=== PATIENT | male | born 1935 | race Caucasian/White ===

== ENCOUNTER 2017-06-13 14:30 | Emergency (ER) | payer OTHER ==
[~2017-06-13] VITALS: Ht 170.2 cm; Wt 81.8 kg
[~2017-06-13 14:30] MED LIST: LISI-363 PO; POTA-267 PO; SPIR25TA PO; TAMS0.4C67 PO
[2017-06-13 14:33] VITALS: BP 224/109; PULSE 103; RESP 18; TEMP 97.6; O2SAT 95
--- NOTE | 2017-06-13 15:08 | PD ---
HPI Chief Complaint: Complaint Time Seen by Provider: 15:04 Travel History International Travel<30 days: No Contact w/Intl Traveler<30days: No Traveled to known affect area: No History of Present Illness HPI Patient presents with urinary complaints. States this morning he passed a few blood clots while urinating. States his urine cleared for some time however he had recurrence of hematuria and frequency of urination. Denies any pain. He is followed by urology. Denies nausea vomiting diarrhea or fever. Denies any confusion. Denies any blood thinners. Positive history of BPH, currently taking Flomax. 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) Social History Alcohol Use: Yes (vodka daily 4-5 shots) Tobacco Use: No (quit 5 years ago) Substance Use: No Allergies-Medications (Allergen,Severity, Reaction): Coded Allergies: No Known Allergies (Unverified , 08/16/13) Reported Meds & Prescriptions Reported Meds & Active Scripts Active Cipro (Ciprofloxacin HCl) 500 Mg Tab 500 Mg PO BID 5 Days Reported Vitamin D3 (Cholecalciferol) 2,000 Unit Cap 2,000 Units PO DAILY B-12 (Cyanocobalamin) 1,000 Mcg Subl 1,000 Mcg PO DAILY Magnesium (Magnesium Oxide) 400 Mg Tablet 250 Mg PO Tamsulosin (Tamsulosin HCl) 0.4 Mg Cap 0.4 Mg PO HS Lisinopril 20 Mg Tab 20 Mg PO DAILY Myrbetriq (Mirabegron) 25 Mg Tab Unknown Dose PO DAILY Review of Systems Genitourinary: Positive: Frequency, Hematuria Physical Exam Narrative GENERAL: Well-nourished, well-developed patient. SKIN: Focused skin assessment warm/dry. HEAD: Normocephalic. EYES: No scleral icterus. No injection or drainage. NECK: Supple, trachea midline. No JVD or lymphadenopathy. CARDIOVASCULAR: Regular rate and rhythm without murmurs, gallops, or rubs. RESPIRATORY: Breath sounds equal bilaterally. No accessory muscle use. GASTROINTESTINAL: Abdomen soft, non-tender, nondistended. MUSCULOSKELETAL: No cyanosis, or edema. BACK: Nontender without obvious deformity. No CVA tenderness. Data Data Last Documented VS Vital Signs Date Time Temp Pulse Resp B/P (MAP) Pulse Ox O2 Delivery O2 Flow Rate FiO2 06/13/17 16:45 94 16 194/103 (133) 97 Room Air 06/13/17 14:33 97.6 Orders Orders Urinalysis - C+S If Indicated (06/13/17 14:35) Complete Blood Count With Diff (06/13/17 16:47) Labs Laboratory Tests Test 06/13/17 15:20 06/13/17 17:05 Urine Collection Type CLEAN CATCH Urine Color YELLOW Urine Turbidity SL CLOUDY Urine pH 6.5 Urine Specific [place] 1.010 Urine Protein NEG mg/dL Urine Glucose (UA) NEG mg/dL Urine Ketones NEG mg/dL Urine Occult Blood LARGE Urine Nitrite NEG Urine Bilirubin NEG Urine Urobilinogen 0.2 MG/DL Urine Leukocyte Esterase NEG Urine RBC 50-99 /hpf Urine WBC 0-2 /hpf Microscopic Urinalysis Comment CULT NOT INDICATED White Blood Count 7.8 TH/MM3 Red Blood Count 4.95 MIL/MM3 Hemoglobin 13.9 GM/DL Hematocrit 41.6 % Mean Corpuscular Volume 84.2 FL Mean Corpuscular Hemoglobin 28.0 PG Mean Corpuscular Hemoglobin Concent 33.3 % Red Cell Distribution Width 13.3 % Platelet Count 277 TH/MM3 Mean Platelet Volume 6.7 FL Neutrophils (%) (Auto) 80.1 % Lymphocytes (%) (Auto) 14.2 % Monocytes (%) (Auto) 5.1 % Eosinophils (%) (Auto) 0.2 % Basophils (%) (Auto) 0.4 % Neutrophils # (Auto) 6.3 TH/MM3 Lymphocytes # (Auto) 1.1 TH/MM3 Monocytes # (Auto) 0.4 TH/MM3 Eosinophils # (Auto) 0.0 TH/MM3 Basophils # (Auto) 0.0 TH/MM3 CBC Comment DIFF FINAL Differential Comment [facility] Medical Decision Making Medical Screen Exam Complete: Yes Emergency Medical Condition: Yes Differential Diagnosis UTI, urethritis, cystitis, bladder cancer Narrative Course Assessment plan discussed with patient at bedside. Urinalysis reveals hematuria without infection. CBC within normal limits no anemia. Diagnosis Primary Impression: Hematuria Qualified Codes: R31.9 - Hematuria, unspecified Patient Instructions: General Instructions Additional Instructions: Encouraged fluids and a cranberry supplement. Antibiotic as prescribed. Follow -up with urology. Return to emergency room with any onset of new symptoms. Med/Other Pt SpecificInfo: Prescription(s) given Scripts Ciprofloxacin (Cipro) 500 Mg Tab 500 MG PO BID for Infection for 5 Days, #10 TAB 0 Refills Prov: Jose Yuen MD 06/13/17 Disposition: 01 DISCHARGE HOME Condition: Good Jose Yuen MD June 13, 2017 15:08
[2017-06-13] MEDS ORDERED: CYAN100025 PO (15:44)
[2017-06-13] MEDS ORDERED: MAGN400T24 PO (15:44)
[2017-06-13] MEDS ORDERED: TAMS0.4C4 PO (15:44)
[2017-06-13] MEDS ORDERED: MIRA25TA PO (15:44)
[2017-06-13] MEDS ORDERED: VITA2000 PO (15:44)
[2017-06-13] MEDS ORDERED: LISI-515 PO (15:44)
[2017-06-13 15:45] VITALS: BP 206/106; PULSE 81; RESP 16; O2SAT 97
[2017-06-13 15:59] LABS: BILIRUBIN, URINE NEG (NEG); BLOOD, URINE LARGE (NEG); GLUCOSE,URINE NEG (NEG); KETONE, URINE NEG (NEG); NITRITE,URINE NEG (NEG); PH, URINE 6.5 (5.0-8.5); URINE COLOR YELLOW (YELLW/STRAW); URINE LEUKOCYTE ESTERASE NEG (NEG)
[2017-06-13 16:25] LABS: WBC, URINE 0-2 /hpf (0-5)
[2017-06-13 16:45] VITALS: BP 194/103; PULSE 94; RESP 16; O2SAT 97
[2017-06-13 17:25] LABS: AUTOMATED NEUTROPHIL # 6.3 TH/MM3 (1.8-7.7); BASOPHIL % 0.4 % (0.0-2.0); EOSINOPHIL % 0.2 % (0.0-4.0); HEMATOCRIT 41.6 % (39.0-51.0); HEMOGLOBIN 13.9 GM/DL (13.0-17.0); LYMPH % 14.2 % (9.0-44.0); LYMPHOCYTE # 1.1 TH/MM3 (1.0-4.8); MEAN CELL VOLUME 84.2 FL (80.0-100.0); MEAN CORPUSCULAR HGB CONC 33.3 % (32.0-36.0); MEAN PLATELET VOLUME 6.7 FL (7.0-11.0); MONO % 5.1 % (0.0-8.0); MONOCYTE # 0.4 TH/MM3 (0-0.9); NEUT % 80.1 % (16.0-70.0); PLATELET COUNT 277 TH/MM3 (150-450); RED BLOOD COUNT 4.95 MIL/MM3 (4.50-5.90); RED CELL DISTRIBUTION WIDTH 13.3 % (11.6-17.2); WHITE BLOOD COUNT 7.8 TH/MM3 (4.0-11.0)
[2017-06-13 17:40] VITALS: BP 193/90; PULSE 89; RESP 16; O2SAT 97
[2017-06-13] MEDS ORDERED: CIPR-9 PO (17:40)
== END 2017-06-13 17:54 | disposition home or self-care (01) ==
LOC: PHED 14:30
DX: R31.9 Hematuria, unspecified (principal); N40.1 Benign prostatic hyperplasia with lower urinary tract symptoms; R35.0 Frequency of micturition; I10 Essential (primary) hypertension; E78.00 Pure hypercholesterolemia, unspecified; Z85.828 Personal history of other malignant neoplasm of skin; Z87.891 Personal history of nicotine dependence
CPT/HCPCS: 81001; 85025; 99283